=== PATIENT | male | born 1955 | race Caucasian/White ===

== ENCOUNTER → 2016-12-15 11:19 | Outpatient (CLI) | payer BC ==
[2011-08-22 06:35] VITALS: BMI 26.5
== END | disposition home or self-care (01) ==
LOC: D.CT 11:19
DX: R10.9 Unspecified abdominal pain (principal)

== ENCOUNTER → 2016-12-23 07:20 | Outpatient (CLI) | payer BC ==
[2011-08-22 06:35] VITALS: BMI 26.5
== END | disposition home or self-care (01) ==
LOC: D.RAD 07:20
DX: R10.9 Unspecified abdominal pain (principal)

== ENCOUNTER → 2018-07-20 08:10 | Outpatient (CLI) | payer BC ==
[2011-08-22 06:35] VITALS: BMI 26.5
== END | disposition home or self-care (01) ==
LOC: D.RT 08:00
DX: R06.02 Shortness of breath (principal)

== ENCOUNTER → 2018-09-16 13:43 | Outpatient (CLI) | payer BC ==
[2011-08-22 06:35] VITALS: BMI 26.5
[2018-09-28 09:13] LABS: IMMUNOGLOBULIN E 9 IU/mL (6-495)
== END | disposition home or self-care (01) ==
LOC: D.LAB 08:00 → D.RT 14:00
PROVIDERS: ATTEND Internal Medicine Pulmonary Disease
DX: J45.909 Unspecified asthma, uncomplicated (principal)

== ENCOUNTER → 2019-01-03 12:53 | Outpatient (CLI) | payer BC ==
[2011-08-22 06:35] VITALS: BMI 26.5
== END | disposition home or self-care (01) ==
LOC: D.CT 12:53
PROVIDERS: ATTEND Internal Medicine Pulmonary Disease
DX: R91.8 Other nonspecific abnormal finding of lung field (principal)